=== PATIENT | male | born 1960 | race Caucasian/White ===

== ENCOUNTER 2022-01-17 17:14 | Emergency (ER) | payer OTHER ==
[2022-01-17 17:42] VITALS: BP 118/70; PULSE 71; TEMP 98.2; BMI 34.1
[2022-01-17] MEDS ORDERED: ACETAMINOPHEN 325 MG TABLET (FP) PO ONE (19:24)
[2022-01-17] MEDS ORDERED: LIDOCAINE 5% TOPICAL PATCH TP ONE (19:24)
[2022-01-17] MEDS ORDERED: IBUPROFEN 400 MG TABLET (FP) PO ONE ×2 (19:24→19:39)
[2022-01-17] MEDS ORDERED: LIDOCAINE 5% TOPICAL PATCH ONE (19:39)
[2022-01-17] MEDS ORDERED: ACETAMINOPHEN 500 MG TABLET (FP) ONE (19:40)
[2022-01-17] MEDS ORDERED: LIDOCAINE PATCH REMOVAL MC SCH (22:00)
[2022-01-18] MEDS ORDERED: CYCLOBENZAPRINE HCL 5 MG TABLET PO SCH (10:00)
== END 2022-01-17 22:18 | disposition home or self-care (01) ==
LOC: JERFT 17:14
DX: M54.50 Low back pain, unspecified (principal)
CPT/HCPCS: 99283-25

== ENCOUNTER 2024-01-05 13:52 | Inpatient (IN) | payer MEDICARE, OTHER ==
[2024-01-05] MEDS ORDERED: KETOROLAC TROMETHAMINE 15 MG/ML VIAL ONE (16:15)
[2024-01-05 16:46] LABS: BASO % 1.1 % (0-2.0); EOS % 3.2 % (0-4.5); HEMATOCRIT 41.5 % (35.4-49); HEMOGLOBIN 13.6 GM/dL (11.7-16.9); LYMPH % 32.3 % (8-40); MCH 27.4 pg (25.7-33.7); MCHC 32.8 g/dl (32.0-35.9); MEAN CELL VOLUME 83.6 fl (80-96); MONO % 9.3 % (3.8-10.2); NEUT % 54.1 % (42.8-82.8); PLATELET COUNT 360 10^3/uL (134-434); RBC 4.96 M/mm3 (4.00-5.60); RDW 15.8 % (11.9-15.9)
[2024-01-05] MEDS: KETOROLAC TROMETHAMINE 15 MG/ML VIAL IVPUSH ONE (16:53)
[2024-01-05 16:54] LABS: INR 0.95 (0.83-1.09); PROTHROMBIN TIME (PATIENT) 10.8 SEC (9.7-13.0)
[2024-01-05 16:57] LABS: ACTIVATED PTT 29.6 SECONDS (25.2-36.5)
[2024-01-05 17:07] LABS: POTASSIUM 4.7 mmol/L (3.5-5.1)
[2024-01-05 17:10] LABS: ALBUMIN 3.6 g/dl (3.4-5.0); BLOOD UREA NITROGEN 19.3 mg/dL (7-18); CALCIUM 9.1 mg/dL (8.5-10.1)
[2024-01-05 17:13] LABS: CREATININE 1.2 mg/dL (0.55-1.3)
[2024-01-05 17:15] LABS: BILIRUBIN,TOTAL 0.6 mg/dL (0.2-1); TOT PROT 6.7 g/dl (6.4-8.2)
[2024-01-05] MEDS ORDERED: VANCOMYCIN 1 GRAM (PRE-DOCKED) 1,000 MG/250 ML BAG IVPB ONE (22:50)
[2024-01-05] MEDS: VANCOMYCIN 1,000 MG in DEXTROSE 5%-WATER - 250 ML IVPB ONE (22:57)
[2024-01-06 02:59] VITALS: BMI 37.6
[2024-01-06] MEDS: DEXTROSE 5%-0.45% SALINE 1,000 ML IV SCH (05:37)
[2024-01-06 08:57] LABS: BASO % 1.1 % (0-2.0); EOS % 3.5 % (0-4.5); HEMATOCRIT 39.5 % (35.4-49); HEMOGLOBIN 13.3 GM/dL (11.7-16.9); LYMPH % 31.9 % (8-40); MCH 28.3 pg (25.7-33.7); MCHC 33.7 g/dl (32.0-35.9); MEAN PLT VOLUME 7.2 fl (7.5-11.1); MONO % 9.6 % (3.8-10.2); NEUT % 53.9 % (42.8-82.8); PLATELET COUNT 333 10^3/uL (134-434); RBC 4.71 M/mm3 (4.00-5.60); RDW 15.5 % (11.9-15.9); WHITE BLOOD COUNT 6.9 K/mm3 (4.0-10.0)
[2024-01-06] MEDS: ACETAMINOPHEN 1000 MG/100 ML BAG IVPB PRN ×2 (09:05→23:49)
[2024-01-06 09:20] LABS: POTASSIUM 4.4 mmol/L (3.5-5.1)
[2024-01-06 09:21] LABS: CALCIUM 8.7 mg/dL (8.5-10.1)
[2024-01-06 09:22] LABS: BLOOD UREA NITROGEN 20.4 mg/dL (7-18)
[2024-01-06 09:25] LABS: CREATININE 1.1 mg/dL (0.55-1.3)
[2024-01-06] MEDS: CLOPIDOGREL BISULFATE 75 MG TABLET (FP) PO SCH (10:59)
[2024-01-06] MEDS ORDERED: ONDANSETRON 4 MG/2 ML VIAL IVPUSH PRN ×2 (12:38→15:51)
[2024-01-06] MEDS ORDERED: LIDOCAINE HCL 1%, 10 MG/ML (20ML VIAL) ONE (12:57)
[2024-01-06] MEDS ORDERED: BUPIVACAINE HCL/PF 0.5% (5MG/ML) 10 ML VIAL ONE ×2 (12:58→13:10)
[2024-01-06] MEDS ORDERED: ACETAMINOPHEN INJECTION 100 ML IVPB ONE (13:41)
[2024-01-06] MEDS: CLINDAMYCIN PHOSPHATE 600 MG/4 ML VIAL IVPB ONE (13:55)
[2024-01-06] MEDS: BUPIVACAINE HCL/PF 0.5% (5MG/ML) 10 ML VIAL IJ ONE (14:05)
[2024-01-06] MEDS ORDERED: FENTANYL CITRATE/PF 50 MCG/ML VIAL ONE (15:24)
[2024-01-06] MEDS: LACTATED RINGERS SOLUTION 1,000 ML IV SCH (16:44)
[2024-01-06] MEDS: VANCOMYCIN/WATER 1250 MG 1,250 MG/250 ML BAG IVPB SCH (16:45)
[2024-01-06] MEDS ORDERED: VANCOMYCIN/WATER FOR INJ (PEG) 1,000 MG/200 ML BAG IVPB ONE (22:00)
[2024-01-06] MEDS ORDERED: VANCOMYCIN 1,000 MG in DEXTROSE 5%-WATER - 250 ML IVPB SCH (23:00)
[2024-01-07] MEDS: VANCOMYCIN/WATER 1250 MG 1,250 MG/250 ML BAG IVPB SCH (01:38)
[2024-01-07] MEDS: ASPIRIN 81 MG CHEWABLE TABLETS PO SCH (09:52)
[2024-01-07] MEDS: CLOPIDOGREL BISULFATE 75 MG TABLET (FP) PO SCH (09:52)
[2024-01-07] MEDS: ROSUVASTATIN CA 20 MG TABLET PO SCH (21:20)
[2024-01-07] MEDS ORDERED: ROSUVASTATIN CA 20 MG TABLET PO SCH (22:00)
[2024-01-08 08:26] LABS: POTASSIUM 4.2 mmol/L (3.5-5.1)
[2024-01-08 08:28] LABS: CALCIUM 8.7 mg/dL (8.5-10.1)
[2024-01-08 08:30] LABS: ALBUMIN 3.2 g/dl (3.4-5.0); BLOOD UREA NITROGEN 17.2 mg/dL (7-18)
[2024-01-08 08:32] LABS: CREATININE 1.3 mg/dL (0.55-1.3)
[2024-01-08 08:33] LABS: BILIRUBIN,TOTAL 0.5 mg/dL (0.2-1)
[2024-01-08 08:34] LABS: BASO % 0.6 % (0-2.0); EOS % 2.2 % (0-4.5); HEMATOCRIT 40.4 % (35.4-49); HEMOGLOBIN 13.3 GM/dL (11.7-16.9); LYMPH % 27.9 % (8-40); MCH 27.5 pg (25.7-33.7); MCHC 32.9 g/dl (32.0-35.9); MEAN CELL VOLUME 83.6 fl (80-96); MEAN PLT VOLUME 7.2 fl (7.5-11.1); MONO % 9.8 % (3.8-10.2); NEUT % 59.5 % (42.8-82.8); PLATELET COUNT 393 10^3/uL (134-434); RBC 4.83 M/mm3 (4.00-5.60); RDW 15.8 % (11.9-15.9); WHITE BLOOD COUNT 8.9 K/mm3 (4.0-10.0)
[2024-01-08] MEDS: RANOLAZINE E.R. 500 MG TABLET (FP) PO SCH (11:00)
[2024-01-08] MEDS: PANTOPRAZOLE 20 MG TABLET PO SCH (11:00)
[2024-01-08] MEDS: SULFAMETHOXAZOLE/TRIMETHOPRIM 800MG/160MG D.S. TABLET PO SCH (11:01)
[2024-01-08] MEDS: GABAPENTIN 300 MG CAPSULE PO SCH (11:01)
[2024-01-08] MEDS: TAMSULOSIN HCL 0.4 MG CAP PO SCH (11:01)
[2024-01-08] MEDS: IBUPROFEN 600 MG TABLET (FP) PO PRN (11:08)
[2024-01-09 06:31] VITALS: RESP 18
[2024-01-09 12:48] VITALS: BP 139/57; PULSE 58; TEMP 97.5
== END 2024-01-09 13:01 | disposition home or self-care (01) | DRG 571 ==
LOC: JER 13:52 → JERBED 01-06 00:09 → J7W 01-06 01:03 → OBSVTOIN 01-06 14:33
PROVIDERS: ADMIT Internal Medicine; ATTEND Family Medicine
PROC: 0JBD0ZZ Excision of Right Upper Arm Subcutaneous Tissue and Fascia, Open Approach (ICD-10-PCS; principal; 2024-01-06 14:00)
DX: L72.3 Sebaceous cyst (principal); L02.413 Cutaneous abscess of right upper limb; D17.39 Benign lipomatous neoplasm of skin and subcutaneous tissue of other sites; I10 Essential (primary) hypertension; I25.10 Atherosclerotic heart disease of native coronary artery without angina pectoris; E78.5 Hyperlipidemia, unspecified; E11.9 Type 2 diabetes mellitus without complications; Z95.1 Presence of aortocoronary bypass graft; K57.90 Diverticulosis of intestine, part unspecified, without perforation or abscess without bleeding; M79.89 Other specified soft tissue disorders; B95.61 Methicillin susceptible Staphylococcus aureus infection as the cause of diseases classified elsewhere; E66.9 Obesity, unspecified; Z68.37 Body mass index [BMI] 37.0-37.9, adult
CPT/HCPCS: 0241U-QW; 36415; 71260-TC; 74177-TC; 80048; 80053; 82962; 83690; 84484; 85025; 85610; 85730; 86850; 86900; 86901; 87040; 87070; 87076; 87186; 87205; 88304-TC; 93005; 93010; 94760; 99285-25; G0378; G0480; J0131; Q9967

== ENCOUNTER 2024-01-21 12:37 | Emergency (ER) | payer OTHER ==
[2024-01-21 12:57] VITALS: BP 112/67; PULSE 98; RESP 16; TEMP 98; BMI 35.9
[2024-01-21 13:51] LABS: BASO % 2.5 % (0-2.0); EOS % 3.2 % (0-4.5); HEMATOCRIT 45.2 % (35.4-49); LYMPH % 31.6 % (8-40); MCH 27.5 pg (25.7-33.7); MCHC 33.2 g/dl (32.0-35.9); MEAN PLT VOLUME 7.4 fl (7.5-11.1); MONO % 8.1 % (3.8-10.2); NEUT % 54.6 % (42.8-82.8); PLATELET COUNT 310 10^3/uL (134-434); RBC 5.45 M/mm3 (4.00-5.60); RDW 15.4 % (11.9-15.9); WHITE BLOOD COUNT 7.6 K/mm3 (4.0-10.0)
[2024-01-21 13:58] LABS: INR 0.9 (0.83-1.09); PROTHROMBIN TIME (PATIENT) 10.4 SEC (9.7-13.0)
[2024-01-21 14:00] LABS: ACTIVATED PTT 33.2 SECONDS (25.2-36.5)
[2024-01-21 14:10] LABS: POTASSIUM 4.3 mmol/L (3.5-5.1)
[2024-01-21 14:12] LABS: CALCIUM 9.5 mg/dL (8.5-10.1)
[2024-01-21 14:13] LABS: ALBUMIN 3.9 g/dl (3.4-5.0); BLOOD UREA NITROGEN 26.4 mg/dL (7-18)
[2024-01-21 14:15] LABS: URIC ACID 6.2 mg/dL (2.6-7.2)
[2024-01-21 14:16] LABS: CREATININE 1.3 mg/dL (0.55-1.3)
[2024-01-21 14:17] LABS: BILIRUBIN,TOTAL 0.7 mg/dL (0.2-1)
[2024-01-21 14:18] LABS: TOT PROT 7.4 g/dl (6.4-8.2)
[2024-01-21] MEDS ORDERED: ACETAMINOPHEN 500 MG TABLET (FP) ONE (15:33)
[2024-01-21] MEDS: ACETAMINOPHEN 500 MG TABLET (FP) PO ONE (15:36)
== END 2024-01-21 16:24 | disposition home or self-care (01) ==
LOC: JER 12:37
DX: L02.413 Cutaneous abscess of right upper limb (principal); E11.622 Type 2 diabetes mellitus with other skin ulcer; L98.499 Non-pressure chronic ulcer of skin of other sites with unspecified severity
CPT/HCPCS: 36415; 80053; 84550; 85025; 85610; 85730; 87040; 87070; 87186; 87205; 93005; 93010; 99284-25